=== PATIENT | male | born 1965 | race African-American/Black ===

== ENCOUNTER 2021-05-20 13:03 | Emergency (ER) | payer OTHER ==
[~2021-05-20] VITALS: Ht 170.2 cm; Wt 138.0 kg
[~2021-05-20 13:03] MED LIST: ATOR10TA60 PO; DOXY100C3 PO; LACT1CAP19 PO; OXYC1TAB15 PO
[2021-05-20 15:10] LABS: BILIRUBIN,URINE NEGATIVE (NEG); CLARITY,URINE CLEAR; COLOR,URINE YELLOW; NITRITE,URINE NEGATIVE (NEG); PH,URINE 5.5 (<5.0-8.0); PROTEIN,URINE NEGATIVE (NEG-TRACE); UROBILINOGEN,URINE 0.2 mg/dL (0.2 mg/dL)
[2021-05-20 15:18] LABS: BACTERIA,URINE 0 /HPF (0-FEW); RBC,URINE 20-40 /HPF (0-2); WBC,URINE OCC /HPF (0-4)
--- NOTE | 2021-05-20 15:30 | PHYS DOC ---
Past Medical History Past Medical History: Asthma, High Cholesterol Additional Past Medical Histor: Osteoarthritis (FRED DÍAZ MD) Past Surgical History: No Surgical History (FRED DÍAZ MD) Smoking Status: Never Smoker Alcohol Use: Occasionally Drug Use: None (FRED DÍAZ MD) General Adult EDM: Chief Complaint: BLOOD IN URINE HPI: HPI: Patient is a 56 year old male with history of asthma, HLD, osteoarthritis who presents with gross hematuria starting this morning. States that his urine was bright red. No history of similar. He had some discomfort with urination only once he noticed the blood. Has not had any dysuria leading up to this. Has some mild suprapubic discomfort as well. Denies flank pain. Denies fever/chills. Denies recent sexual activity. No recent penile discharge. No rectal pain. No history of kidney stones. Occasional THC use. No tobacco use. (FRED DÍAZ MD) Review of Systems: Review of Systems: Constitutional: Denies fever or chills. [] Eyes: Denies change in visual acuity. [] HENT: Denies nasal congestion or sore throat. [] Respiratory: Denies cough or shortness of breath. [] Cardiovascular: Denies chest pain or edema. [] GI: Denies abdominal pain, nausea, vomiting, bloody stools or diarrhea. [] : Reports hematuria, dysuria, suprapubic discomfort Musculoskeletal: Denies back pain or joint pain. [] Integument: Denies rash. [] Neurologic: Denies headache, focal weakness or sensory changes. [] Endocrine: Denies polyuria or polydipsia. [] Lymphatic: Denies swollen glands. [] Psychiatric: Denies depression or anxiety. [] (FRED DÍAZ MD) Heart Score: C/O Chest Pain: No Risk Factors: Risk Factors: DM, Current or recent (<one month) smoker, HTN, HLP, family history of CAD, obesity. Risk Scores: Score 0 - 3: 2.5% MACE over next 6 weeks - Discharge Home Score 4 - 6: 20.3% MACE over next 6 weeks - Admit for Clinical Observation Score 7 - 10: 72.7% MACE over next 6 weeks - Early Invasive Strategies (FRED DÍAZ MD) C/O Chest Pain: N/A (DEMOND ZHANG DO) Allergies: Allergies: Allergies Coded Allergies Type Severity Reaction Last Updated Verified No Known Drug Allergies 03/06/19 No (FRED DÍAZ MD) Physical Exam: PE: Constitutional: Well developed, well nourished, no acute distress, non-toxic appearance. [] HENT: Normocephalic, atraumatic, bilateral external ears normal, oropharynx moist, no oral exudates, nose normal. [] Eyes: PERRLA, EOMI, conjunctiva normal, no discharge. [] Neck: Normal range of motion, no tenderness, supple, no stridor. [] Cardiovascular:Heart rate regular rhythm, no murmur [] Lungs & Thorax: Bilateral breath sounds clear to auscultation [] Abdomen: Obese abdomen, soft, nontender to palpation. Skin: Warm, dry, no erythema, no rash. [] Back: No tenderness, no CVA tenderness. [] Extremities: No tenderness, no cyanosis, no clubbing, ROM intact, no edema. [] Neurologic: Alert and oriented X 3, normal motor function, normal sensory function, no focal deficits noted. [] Psychologic: Affect normal, judgement normal, mood normal. [] (FRED DÍAZ MD) Current Patient Data: Labs: Laboratory Tests Test 05/20/21 14:57 Urine Collection Type Unknown Urine Color Yellow Urine Clarity Clear Urine pH 5.5 (<5.0-8.0) Urine Specific Rogers 1.020 (1.000-1.030) Urine Protein Negative mg/dL (NEG-TRACE) Urine Glucose (UA) Negative mg/dL (NEG) Urine Ketones (Stick) Negative mg/dL (NEG) Urine Blood Large (NEG) Urine Nitrite Negative (NEG) Urine Bilirubin Negative (NEG) Urine Urobilinogen Dipstick 0.2 mg/dL (0.2 mg/dL) Urine Leukocyte Esterase Negative (NEG) Urine RBC 20-40 /HPF (0-2) Urine WBC Occ /HPF (0-4) Urine Bacteria 0 /HPF (0-FEW) Urine Mucus Mod /LPF Vital Signs: Vital Signs Date Time Temp Pulse Resp B/P (MAP) Pulse Ox O2 Delivery O2 Flow Rate FiO2 05/20/21 14:54 98.4 59 16 143/76 (98) 98 Room Air 98.4 (FRED DÍAZ MD) Labs: Laboratory Tests Test 05/20/21 14:57 05/20/21 16:15 Urine Collection Type Unknown Urine Color Yellow Urine Clarity Clear Urine pH 5.5 Urine Specific Rogers 1.020 Urine Protein Negative mg/dL Urine Glucose (UA) Negative mg/dL Urine Ketones (Stick) Negative mg/dL Urine Blood Large Urine Nitrite Negative Urine Bilirubin Negative Urine Urobilinogen Dipstick 0.2 mg/dL Urine Leukocyte Esterase Negative Urine RBC 20-40 /HPF Urine WBC Occ /HPF Urine Bacteria 0 /HPF Urine Mucus Mod /LPF White Blood Count 10.2 x10^3/uL Red Blood Count 4.74 x10^6/uL Hemoglobin 14.0 g/dL Hematocrit 41.3 % Mean Corpuscular Volume 87 fL Mean Corpuscular Hemoglobin 29 pg Mean Corpuscular Hemoglobin Concent 34 g/dL Red Cell Distribution Width 14.8 % Platelet Count 244 x10^3/uL Neutrophils (%) (Auto) 59 % Lymphocytes (%) (Auto) 30 % Monocytes (%) (Auto) 6 % Eosinophils (%) (Auto) 3 % Basophils (%) (Auto) 1 % Neutrophils # (Auto) 6.1 x10^3/uL Lymphocytes # (Auto) 3.1 x10^3/uL Monocytes # (Auto) 0.7 x10^3/uL Eosinophils # (Auto) 0.3 x10^3/uL Basophils # (Auto) 0.1 x10^3/uL Sodium Level 138 mmol/L Potassium Level 4.1 mmol/L Chloride Level 105 mmol/L Carbon Dioxide Level 25 mmol/L Anion Gap 8 Blood Urea Nitrogen 18 mg/dL Creatinine 1.0 mg/dL Estimated GFR (Cockcroft-Gault) 93.2 Glucose Level 87 mg/dL Calcium Level 8.7 mg/dL Current Medications Medications (Trade) Dose Ordered Sig/Karina Route PRN Reason Start Time Stop Time Status Last Admin Dose Admin Iohexol (Omnipaque 300 Mg/ml) 75 ml 1X ONCE IV 05/20/21 17:00 05/20/21 17:04 DC 05/20/21 17:28 (DEMOND ZHANG DO) EKG: EKG: [] (FRED DÍAZ MD) Radiology/Procedures: Radiology/Procedures: [] (FRED DÍAZ MD) Radiology/Procedures: [facility] [address] [place] [address] IMAGING REPORT Signed PATIENT: CLAIRE DELGADILLO FACCOUNT: [id number] : 1965 LOCATION: ER AGE: 56 SEX: M EXAM STATUS: REG ER ORD. PHYSICIAN: FRED DÍAZ MD REASON: hematuria PROCEDURE: CT ABD PELV W/ IV CONTRST ONLY CT abdomen and pelvis with contrast: Reason for examination: Hematuria. Helical images were obtained through the abdomen pelvis with intravenous administration of 75 cc Omnipaque 300. Reconstruction was performed in sagittal and coronal planes. Exposure: One or more of the following individualized dose reduction techniques were utilized for this examination: 1. Automated exposure control 2. Adjustment of the mA and/or kV according to patient size 3. Use of iterative reconstruction technique. The lung bases show some linear atelectasis. The heart size is normal with no pericardial effusion evident. No abnormality is seen at the liver, gallbladder, pancreas or spleen or adrenal glands. The abdominal aorta and inferior vena cava show no acute abnormalities. There is no diverticulosis, diverticulitis or colitis evident. No abnormality seen at the appendix. The small intestinal tract shows no abnormal dilatation, wall thickening or evidence of obstruction. No abnormality is seen at the stomach or duodenum. The right kidney shows no renal mass, renal calculus, hydronephrosis or evidence of obstructive uropathy. The left kidney shows hypodense lesions probably representing cysts measuring up to 3.3 cm in size but no renal calculi, hydronephrosis or obstructive uropathy. No abnormality seen at the bladder, prostate gland or seminal vesicles. No free fluid or free air is seen in the abdomen or pelvis. No acute bony abnormalities are seen. IMPRESSION: Linear atelectasis at the lung bases. Hypodense lesions consistent with probable cysts measuring up to 3.3 cm in the left kidney. No other acute abnormality evident in the abdomen or pelvis. Electronically signed by: Woody Woodruff MD (05/20/2021 6:11 PM) [facility] DICTATED and SIGNED BY: WOODY WOODRUFF MD DATE: 05/20/21 [id number] [facility] [address] [place] [address] IMAGING REPORT Signed PATIENT: CLAIRE DELGADILLO FACCOUNT: [id number] : 1965 LOCATION: ER AGE: 56 SEX: M EXAM STATUS: REG ER ORD. PHYSICIAN: DEMOND ZHANG DO REASON: HEMATURIA, LEFT SIDE RENAL MASS/CYST, NEED RENAL ULTRASOUND. PROCEDURE: RENAL COMPLETE BILATERAL INDICATION: Reason: HEMATURIA, LEFT SIDE RENAL MASS/CYST, NEED RENAL ULTRASOUND. / Spl. Instructions: / History: COMPARISON: CT from same day TECHNIQUE: Grayscale and color ultrasound images obtained of the bilateral kidneys and bladder. FINDINGS: Right Kidney: 103 mm. No hydronephrosis. Left Kidney: 120 mm. No hydronephrosis. Multiple hypoechoic lesions bilaterally but visualization is limited secondary to overlying soft tissues. This includes within the left kidney measuring up to 36 mm. Bladder: Obscured by overlying structures. IMPRESSION: * Hypoechoic lesions are identified at the left kidney but not well evaluated given overlying soft tissues obscuring therefore difficult to tell if these are secondary to simple cyst or if there is a complex solid component. Nonemergent CT or MRI renal protocol could better assess. Electronically signed by: Brian Jarquin MD (05/20/2021 7:24 PM) [id number] DICTATED and SIGNED BY: BRIAN JARQUIN MD DATE: 05/20/21 [id number] (DEMOND ZHANG DO) Course & Med Decision Making: Course & Med Decision Making Pertinent Labs and Imaging studies reviewed. (See chart for details) Patient is a 56-year-old male who presents with gross hematuria. Vitally stable on arrival. No evidence of prostatitis, UA does not appear affected, no history of renal colic/no flank discomfort to suggest renal colic. Not a tobacco user, lowering his probability of bladder and renal cancer. UA, BMP, CBC, CT abdomen/pelvis to help delineate cause. -- UA with a few RBCs. BMP and CBC stable. Vitally stable. Pending CT scan at time of signout at 1800 to oncoming colleague. [id number] (FRED DÍAZ MD) Course & Med Decision Making Patient is a 56-year-old male who present to ER due to painless hematuria. CT scan her abdomen pelvis with IV contrast and renal ultrasound show a 3.3 cm cyst or mass on the left kidney. Patient will need to outpatient evaluation by urology for further evaluation and treatment. Patient was given the report of the CT scan and ultrasound. Patient was given the phone number of the urology group around here so he can call for follow-up. Patient is amenable to plan of care. (DEMOND ZHANG DO) Dragon Disclaimer: Dragon Disclaimer: This electronic medical record was generated, in whole or in part, using a voice recognition dictation system. (FRED DÍAZ MD) Departure Departure Impression: Primary Impression: Painless hematuria Additional Impression: Renal mass, left Disposition: 01 HOME / SELF CARE / HOMELESS Condition: STABLE Referrals: NILAM BUI MD (PCP) Please follow up with your family doctor for a referral to a urologist for outpatient evaluation and treatment this week or call the urology group provided. Patient Instructions: Hematuria, Adult Additional Instructions: You were seen today due to blood in your urine. CT scan and ultrasound of the abdomen pelvis showed he had a 3.3 cm mass or cyst on the left kidney. You will need further evaluation and treatment in the outpatient setting by urology. Please call UROLOGY FOR FOLLOW UP IN 2 DAYS in one the following location. You will need outpatient evaluation and treatment. [facility] / [place] [address] [place] [address] [place] [address] [place] [address] [place] [address] [facility], [address] [place] [address] FRED DÍAZ MD May 20, 2021 15:30 DEMOND ZHANG DO May 20, 2021 19:35
[2021-05-20 16:21] LABS: BASO # 0.1 x10^3/uL (0.0-0.2); BASO % 1 % (0-3); EOS # 0.3 x10^3/uL (0.0-0.7); EOS % 3 % (0-3); HEMATOCRIT 41.3 % (39.0-53.0); LYMPH # 3.1 x10^3/uL (1.0-4.8); LYMPH % 30 % (24-48); MEAN CORPUSCULAR HEMOGLOBIN 29 pg (25-35); MEAN CORPUSCULAR HGB CONC 34 g/dL (31-37); MEAN CORPUSCULAR VOLUME 87 fL (79-100); MONO # 0.7 x10^3/uL (0.0-1.1); MONO % 6 % (0-9); NEUT # 6.1 x10^3/uL (1.8-7.7); NEUT % 59 % (31-73); PLATELET COUNT 244 x10^3/uL (140-400); RED BLOOD COUNT 4.74 x10^6/uL (4.30-5.70); RED CELL DISTRIBUTION WIDTH 14.8 % (11.5-14.5); WHITE BLOOD COUNT 10.2 x10^3/uL (4.0-11.0)
[2021-05-20] MEDS ORDERED: IOHEXOL 300 MG/ML 100ML VIAL. IV ONE (17:00)
[2021-05-20 17:14] LABS: CALCIUM 8.7 mg/dL (8.5-10.1); GFR 93.2; POTASSIUM 4.1 mmol/L (3.5-5.1)
--- NOTE | 2021-05-20 18:14 | RAD ---
CT abdomen and pelvis with contrast: Reason for examination: Hematuria. Helical images were obtained through the abdomen pelvis with intravenous administration of 75 cc Omni paque 300. Reconstruction was performed in sagittal and coronal planes. Exposure: One or more of the following individualized dose reduction techniques were utilized for thi s examination: 1. Automated exposure control 2. Adjustment of the mA and/or kV according to patient size 3. Use of iterative reconstruction technique. The lung bases show some linear atelectasis. The heart size is normal with no pericardial effusion ev ident. No abnormality is seen at the liver, gallbladder, pancreas or spleen or adrenal glands. The abdominal aorta and inferior vena cava show no acute abnormalities. There is no diverticulosis, diverticulitis or colitis evident. No abnormality seen at the appendix. The small intestinal tract shows no abnorma l dilatation, wall thickening or evidence of obstruction. No abnormality is seen at the stomach or du odenum. The right kidney shows no renal mass, renal calculus, hydronephrosis or evidence of obstructi ve uropathy. The left kidney shows hypodense lesions probably representing cysts measuring up to 3.3 cm in size but no renal calculi, hydronephrosis or obstructive uropathy. No abnormality seen at the bladder, prostate gland or seminal vesicles. No free fluid or free air is seen in the abdomen or pelvis. No acute bony abnormalities are seen. IMPRESSION: Linear atelectasis at the lung bases. Hypodense lesions consistent with probable cysts measuring up to 3.3 cm in the left kidney. No other acute abnormality evident in the abdomen or pelvis. Electronically signed by: Flory Meyers MD (05/20/2021 6:11 PM) [facility]
[2021-05-20 18:33] VITALS: BP 156/89
--- NOTE | 2021-05-20 19:27 | RAD ---
INDICATION: Reason: HEMATURIA, LEFT SIDE RENAL MASS/CYST, NEED RENAL ULTRASOUND. / Spl. Instructions: / History: COMPARISON: CT from same day TECHNIQUE: Grayscale and color ultrasound images obtained of the bilateral kidneys and bladder. FINDINGS: Right Kidney: 103 mm. No hydronephrosis. Left Kidney: 120 mm. No hydronephrosis. Multiple hypoechoic lesions bilaterally but visualization is limited secondary to overlying soft tiss ues. This includes within the left kidney measuring up to 36 mm. Bladder: Obscured by overlying structures. IMPRESSION: * Hypoechoic lesions are identified at the left kidney but not well evaluated given overlying soft t issues obscuring therefore difficult to tell if these are secondary to simple cyst or if there is a c omplex solid component. Nonemergent CT or MRI renal protocol could better assess. Electronically signed by: Charlie Martinez MD (05/20/2021 7:24 PM) [id number]
== END 2021-05-20 19:45 | disposition home or self-care (01) ==
LOC: ER 13:03
DX: R31.0 Gross hematuria (principal); N28.89 Other specified disorders of kidney and ureter; J45.909 Unspecified asthma, uncomplicated; E78.00 Pure hypercholesterolemia, unspecified
CPT/HCPCS: 36415; 74177; 76770; 80048; 81001; 85025; 99285; Q9967

== ENCOUNTER → 2021-05-27 | Outpatient (CLI) | payer OTHER ==
[2021-05-20 18:33] VITALS: BP 156/89
--- NOTE | 2021-05-27 10:27 | RAD ---
XR KNEE 1-2 VIEWS 05/27/2021 Reason: DAVID KNEE PAIN. / Spl. Instructions: / History: Comparison: None Technique: 2 views of each knee Findings: There is no acute fracture or dislocation. Bone mineralization is within normal limits. The bilateral knees demonstrate tricompartmental osteoarthrosis which is moderate to severe greater on the left co mpared to the right and greatest at the lateral left tibiofemoral compartment. There is associated reyes bchondral sclerosis, joint space narrowing and osteophytosis. There are rounded ossific bodies along the posterior knee bilaterally which may be intra-articular. Soft tissues are otherwise unremarkable. Impression: 1. Bilateral tricompartmental osteoarthrosis greater on the left. Electronically signed by: Akshat Mckee (05/27/2021 10:24 AM) [id number]
== END ==
LOC: RAD 09:10
PROVIDERS: ATTEND Family Medicine
DX: Z02.71 Encounter for disability determination (principal); M17.0 Bilateral primary osteoarthritis of knee; M25.762 Osteophyte, left knee; M25.761 Osteophyte, right knee; M25.862 Other specified joint disorders, left knee; M25.861 Other specified joint disorders, right knee
CPT/HCPCS: 73560-50